=== PATIENT | female | born 1985 | race American Indian/Alaskan Native ===

== ENCOUNTER 2016-11-15 23:50 | Emergency (ER) | payer SELFPAY ==
[2016-11-16] MEDS ORDERED: TORADOL IM ONE (00:24)
--- NOTE | 2016-11-16 00:24 | Emergency Department Report ---
ED Lower Extremity HPI - General Chief Complaint: Extremity Injury, Lower Stated Complaint: RT KNEE PAIN Time Seen by Provider: 11/16/16 00:23 Source: patient Mode of arrival: Ambulatory Limitations: No Limitations - History of Present Illness Initial Comments: Patient reports that she has right knee pain. She said her pain is 8 out of 10. She said it's a can and sharp. Patient says she dislocated her knee off and on the right side and she is normally able to put it back and place but she thinks she may have hurt it more than usual today. She said this has been going on for 2 years that she is not seen orthopedic doctor for the problem. She says she's just been taken [id number] pain medication and put in her knee back in place when it gets dislocated. Patient has a history of hypothyroidism and HPV. Last menstrual period was 11/03/2016. Denies any numbness or tingling to extremities. Denies any redness or swelling to knees. MD Complaint: knee injury, other (right knee dislocation and pain) -: This evening Injury: Knee: Right (right knee pain after being dislocated and patient reports that she reduced her own knee and she's been doing this for several years) Type of Injury: other (dislocation of knee) Place: home Severity: severe Severity scale (0 -10): 8 Improves With: immobilization, rest Worsens With: weight bearing, movement, palpation Context: walking (and dislocated her knee) Associated Symptoms: ambulatory. denies: snap/pop sensation, swelling, numbness , tingling Treatments Prior to Arrival: spinal immobilization (patient came to the emergency room with knee immobilizer) - Related Data Previous Rx's Medication Instructions Recorded Last Taken Type HYDROcodone/APAP 5-325 [Buena 1 each PO Q6HR PRN #10 tablet 08/29/14 Unknown Rx 5/325] Sulfamethoxazole/Trimethoprim 1 each PO BID #20 tablet 08/29/14 Unknown Rx [Bactrim Ds] traMADol [Ultram 50 MG tab] 50 mg PO Q6HR PRN #12 tablet 11/16/16 Unknown Rx Allergies Allergy/AdvReac Type Severity Reaction Status Date / Time metronidazole [From Flagyl] Allergy Vomiting Verified 08/29/14 14:52 Penicillins AdvReac Itching Verified 08/29/14 14:46 ED Review of Systems ROS: Stated complaint: RT KNEE PAIN Other details as noted in HPI Comment: All other systems reviewed and negative Constitutional: denies: chills, fever Respiratory: no symptoms reported Cardiovascular: denies: chest pain, palpitations, edema, syncope Gastrointestinal: denies: nausea, vomiting Musculoskeletal: joint swelling, arthralgia. denies: back pain, myalgia Skin: denies: rash Neurological: abnormal gait (due to right knee pain). denies: headache, weakness, numbness, paresthesias, confusion, vertigo ED Past Medical Hx - Past Medical History Previous Medical History?: Yes Additional medical history: Hypothyroid. HPV - Surgical History Past Surgical History?: No - Family History Family history: no significant - Social History Smoking Status: Current Every Day Smoker Substance Use Type: Alcohol Other Social History: Single - Medications Home Medications: Home Medications Medication Instructions Recorded Confirmed Last Taken Type HYDROcodone/APAP 5-325 [Buena 1 each PO Q6HR PRN #10 tablet 08/29/14 Unknown Rx 5/325] Sulfamethoxazole/Trimethoprim 1 each PO BID #20 tablet 08/29/14 Unknown Rx [Bactrim Ds] traMADol [Ultram 50 MG tab] 50 mg PO Q6HR PRN #12 tablet 11/16/16 Unknown Rx ED Physical Exam - General Limitations: No Limitations General appearance: alert, in no apparent distress - Head Head exam: Present: atraumatic, normocephalic, normal inspection - Eye Eye exam: Present: normal appearance, PERRL, EOMI Pupils: Present: normal accommodation - Neck Neck exam: Present: normal inspection, full ROM. Absent: tenderness, meningismus, lymphadenopathy - Respiratory Respiratory exam: Present: normal lung sounds bilaterally. Absent: respiratory distress, chest wall tenderness - Cardiovascular Cardiovascular Exam: Present: regular rate, normal rhythm, normal heart sounds - Extremities Exam Extremities exam: Present: normal inspection, full ROM (patient able to extend her knee but she reports that it is painful to flex knee), tenderness (tender to palpate the anterior knee), normal capillary refill, other (no clubbing cyanosis or edema. +2 pulses to extremities. No neurovascular compromise.). Absent: pedal edema, joint swelling, calf tenderness - Expanded Lower Extremity Exam Right Hip exam: Present: normal inspection, full ROM, pelvic stability. Absent: tenderness, swelling, abrasion, laceration, ecchymosis, deformity, crepidus, dislocation, erythema, external rotation, internal rotation, shortening Upper Leg exam: Present: normal inspection, full ROM. Absent: tenderness, swelling, abrasion, laceration, ecchymosis, deformity, crepidus, dislocation, erythema Knee exam: Present: normal inspection, full ROM (patient able to extend her knee fully but she reports that it is painful to flex knee.), tenderness ( anterior knee), pain w/ pronation/supination, full knee extension. Absent: swelling, abrasion, laceration, ecchymosis, deformity, crepidus, dislocation, erythema, effusion, pain/laxity with valgus, pain/laxity with varus Lower Leg exam: Present: normal inspection, full ROM. Absent: tenderness, swelling, abrasion, laceration, ecchymosis, deformity, crepidus, dislocation, erythema, palpable cord, Funmilayo's sign Ankle exam: Present: normal inspection, full ROM. Absent: tenderness, swelling , abrasion, laceration, ecchymosis, deformity, crepidus, dislocation, erythema Foot/Toe exam: Present: normal inspection, full ROM. Absent: tenderness, swelling, abrasion, laceration, ecchymosis, deformity, crepidus, dislocation, erythema, amputation, puncture wound, foreign body, calcaneal tenderness, tenderness at base of 5th metatarsal, nail avulsion, subungual hematoma Neuro vascular tendon exam: Present: no vascular compromise. Absent: pulse deficit, abnormal cap refill, motor deficit, sensory deficit, tendon deficit, extremity cold to touch, pallor, abnormal 2-point discrimination, decreased fine /light touch, foot drop, peroneal nerve deficit, significant pain with passive ROM of distal joint Gait: Positive: observed and limited by pain - Back Exam Back exam: Present: normal inspection, full ROM. Absent: tenderness, CVA tenderness (R), CVA tenderness (L), muscle spasm, paraspinal tenderness, vertebral tenderness, rash noted - Neurological Exam Neurological exam: Present: alert, oriented X3, normal gait, reflexes normal. Absent: motor sensory deficit - Psychiatric Psychiatric exam: Present: normal affect, normal mood - Skin Skin exam: Present: warm, dry, intact, normal color. Absent: rash ED Course Vital Signs 11/15/16 11/16/16 23:53 00:33 Temperature 98.1 F Pulse Rate 96 H Respiratory 18 18 Rate Blood Pressure 112/76 O2 Sat by Pulse 100 Oximetry - Reevaluation(s) Reevaluation #1: 11/16/16 01:36 Patient given Toradol 60 mg emergency room for right knee pain ED Lower Extremity MDM - Radiology Data Radiology results: report reviewed X-ray of right knee reveals normal examination. No acute bony abnormality. No effusion. - Medical Decision Making ED course: Patient here report that she has chronic right knee pain from multiple dislocation. She says she dislocated her knee again today while she was walking at home and she popped it back into place. Physical findings with right knee tenderness anteriorly, no signs of ligament injury. No effusion, no redness or swelling. Patient able to fully extend her right knee and she is able to flex her right knee but she said it's painful when she flexes it. Patient has not seen here in the past for this problem and she said that usually she pops her knees back into place and has not followed up with primary care or orthopedic doctor regarding this problem. I discussed with her that she will need to follow-up with orthopedic doctor and I also discussed with her that her x-ray of right knee was normal. Patient able to ambulate without any difficulties. Diagnostic/lab: X-ray of right knee reveals no acute bony abnormality and no effusion. Assessment/plan 1. Acute and chronic right knee pain Patient encouraged to follow up with orthopedic doctor recommended in 4 days regarding multiple dislocation of right knee Prescription given for tramadol when necessary Patient has her own knee brace so I told her she can worried if it makes her feel better. Rice therapy explained. Critical care attestation.: If time is entered above; I have spent that time in minutes in the direct care of this critically ill patient, excluding procedure time. ED Disposition Clinical Impression: Right anterior knee pain Disposition: DC-01 TO HOME OR SELFCARE Is pt being admited?: No Does the pt Need Aspirin: No Condition: Stable Instructions: Arthralgia (ED), Knee Pain (ED), Knee Exercises (GEN), RICE Therapy (ED) Additional Instructions: Please follow up with orthopedic doctor as instructed Take Ultram for pain as ordered but please do not drive or operate heavy machinery while taking this medication as it can cause drowsiness You can review her own knee brace if you feel it helps Rice therapy per discharge instruction protocol Prescriptions: traMADol [Ultram 50 MG tab] 50 mg PO Q6HR PRN #12 tablet PRN Reason: Pain Referrals: NATALIYA STEWART MD [Staff Physician] - 11/19/16 Forms: Work/School Release Form(ED)
--- NOTE | 2016-11-16 00:50 | XRay Report ---
FINAL REPORT EXAM: XR KNEE 3V RT HISTORY: rt knee pain COMPARISON: None available. FINDINGS: Three views the right knee obtained. Bony structures are intact. Joint spaces are preserved. No acute fracture dislocation. IMPRESSION: No acute bony abnormality.
[2016-11-16 01:53] VITALS: BP 117/78
== END 2016-11-16 01:52 | disposition home or self-care (01) ==
LOC: ED 23:50
DX: M25.561 Pain in right knee (principal); F17.210 Nicotine dependence, cigarettes, uncomplicated; Z88.0 Allergy status to penicillin; Z88.8 Allergy status to other drugs, medicaments and biological substances
CPT/HCPCS: 73562; 96372; 99283; J1885